=== PATIENT | male | born 1945 | race Caucasian/White ===

== ENCOUNTER 2018-09-14 12:37 | Outpatient (CLI) | payer OTHER | END 2018-09-14 12:38 | disposition home or self-care (01) | LOC: ULT 12:37 → EDSTATUS 13:00 | PROVIDERS: ATTEND Orthopaedic Surgery | DX: I25.10 Atherosclerotic heart disease of native coronary artery without angina pectoris (principal); I80.3 Phlebitis and thrombophlebitis of lower extremities, unspecified; I37.1 Nonrheumatic pulmonary valve insufficiency | CPT/HCPCS: 93306 ==

== ENCOUNTER 2018-09-19 21:19 | Inpatient (IN) | payer MEDICARE, BC ==
[2018-09-19] MEDS ORDERED: Acetaminophen 500 MG TAB ONE (21:39)
[2018-09-19 21:52] LABS: Mean Corpuscular HGB CONC 32.1 g/dL (32.0-36.0); Mean Corpuscular Volume 93.5 fL (78.0-98.0); Mean Platelet Volume 8.3 fL (7.4-10.4); Platelet Count 224 thou/uL (130-400); RBC Distribution Width 13.2 % (11.5-14.5); Red Blood Cell (RBC) Count 4.65 mill/uL (4.70-6.10); White Blood Cell (WBC) Count 16.3 thou/uL (4.8-10.8)
[2018-09-19 21:59] LABS: INR-International Normal Ratio 1.3; PTT 31.4 SEC (22.9-36.1); Prothrombin Time 16.3 SEC (12.0-14.7)
[2018-09-19 22:05] LABS: ALT (SGPT) 16 U/L (8-55); AST (SGOT) 16 U/L (5-34); Albumin 3.5 g/dL (3.4-4.8); Alkaline Phosphatase 56 U/L (40-150); Anion Gap 16 mmol/L (10-20); BUN (Urea Nitrogen) 19 mg/dL (8.4-25.7); Bilirubin, Total 0.9 mg/dL (0.2-1.2); CK (CPK) 48 U/L (30-200); Calc. Creatinine Clearance 0 mL/min (70-130); Calcium 8.5 mg/dL (7.8-10.44); Carbon Dioxide 26 mmol/L (23-31); Chloride 103 mmol/L (98-107); Estimated GFR-MDRD 52; Globulin 2.9 g/dL (2.4-3.5); Glucose 187 mg/dL (83-110); Potassium 3.7 mmol/L (3.5-5.1); Protein, Total 6.4 g/dL (5.8-8.1); Sodium 141 mmol/L (136-145)
[2018-09-19 22:10] LABS: Band 33 % (5-11); Lymphocytes 1 % (21-51); MDiff Complete? YES; Monocytes 4 % (0-10); Neutrophil 62 % (42-75); PLT Morphology Comment Appears Adequate; RBC Morphology Normal
[2018-09-19 22:12] LABS: Actual Bicarbonate (HCO3a) 24.7 mEq/L (22-28); Analyzer IN Cardio ER; Base Excess (BEa) -0.8 mEq/L (-2.0 to +3.0); CO2 Tension 43.9 mmHg (35.0-45.0); Calcium, Ionized 1.16 mmol/L (1.12-1.30); Carboxyhemoglobin (COHb) 1.2 gm% (0.0-3.0); Hemoglobin (Hb) 14.1 g/dL (14.0-18.0); O2 Tension (PaO2) 70.6 mmHg (> 70.0); Potassium - ABG Lab 3.64 mmol/L (3.70-5.30); pH, Arterial 7.37 (7.35-7.45)
[2018-09-19 22:13] LABS: ALV-art Gradient 74.165 (0-20)
[2018-09-19 22:26] LABS: CKMB 1.3 ng/mL (0-6.6)
--- NOTE | 2018-09-19 22:52 | RAD ---
UPRIGHT PORTABLE CHEST: 09/19/18 HISTORY: 73-year-old male with history of dyspnea and weakness with low blood pressure. History of a-fib. There is some bilateral vascular congestion. There is evidence for left pleural effusion. Minimal inc reased linear and interstitial markings which could well present some minimal interstitial edema. IMPRESSION: Bilateral vascular congestion with possible mild interstitial edema. Evidence for left pleural effusi on with possible very small right pleural effusion. No old studies. Continued short term followup. POS: [facility]
[2018-09-19 23:07] LABS: Bilirubin Negative (Negative); Blood, Urine Small (Negative); Clarity CLEAR (Clear); Glucose, Urine (Dipstick) Negative (Negative); Leukocyte Negative (Negative); Nitrite Negative (Negative); Protein, Urine (Dipstick) Trace mg/dL (Neg-Trace); Specific Gravity, Urine 1.012 (1.002-1.036); pH, Urine 6.5 (5.0-9.0)
[2018-09-19 23:09] LABS: Bacteria/HPF None Seen HPF (None Seen); Hyaline Casts/LPF 0-3 HYALINE CAST LPF (0-3 Hyaline); Pathc Cast-AUWi Flag 0.43 (0-2.49); Squamous Epithelial 0-3 HPF (0-3); WBC/HPF 0-3 HPF (0-3)
[2018-09-20] MEDS ORDERED: Ondansetron ODT 4 MG TAB PO PRN (00:55)
[2018-09-20] MEDS ORDERED: CCU Electrolyte Replacement 1 EACH FS ONE (00:55)
[2018-09-20] MEDS ORDERED: Senokot S 8.6-50 MG TAB PO PRN (00:55)
[2018-09-20] MEDS ORDERED: Acetaminophen 325 MG TAB PO PRN (00:55)
[2018-09-20] MEDS ORDERED: Guaifenesin DM 100-10/5 ML UDCUP PO PRN (00:55)
[2018-09-20] MEDS ORDERED: Ondansetron PF 4 MG/2 ML Vial IVP PRN (00:55)
[2018-09-20] MEDS ORDERED: Zolpidem Tartrate 5 MG TAB PO PRN (00:55)
[2018-09-20] MEDS ORDERED: Bisacodyl 5 MG TAB PO PRN (00:55)
[2018-09-20] MEDS ORDERED: Norepinephrine 8 MG/0.9% NS 250 ML IVPB SCH (01:00)
[2018-09-20] MEDS ORDERED: Norepinephrine 8 MG/0.9% NS 250 ML ONE (01:14)
[2018-09-20] MEDS ORDERED: Piperacillin/Tazobactam 4.5 GM VIAL ONE (01:14)
[2018-09-20 01:38] LABS: Lactic Acid 2.7 mmol/L (0.5-2.2)
[2018-09-20] MEDS ORDERED: Potassium Chloride 40 MEQ in Sodium Chloride 0.9% 250 ML 250 ML IVPB PRN (01:44)
[2018-09-20] MEDS ORDERED: Potassium Phosphate 9 MMOL in Sodium Chloride 0.9% 100 ML IVPB PRN (01:44)
[2018-09-20] MEDS ORDERED: Potassium Chloride 40 MEQ in Premix Bag 1 BAG IVPB PRN (01:44)
[2018-09-20] MEDS ORDERED: Potassium Phosphate 12 MMOL in Sodium Chloride 0.9% 250 ML 250 ML IV PRN (01:44)
[2018-09-20] MEDS ORDERED: CCU ELECTROLYTE REPLACEMENT PROTOCOL FS PRN (01:44)
[2018-09-20] MEDS ORDERED: Magnesium 2 GM/NS 0.9% 100 ML 2 GM in Premix Bag 1 BAG IVPB PRN (01:44)
[2018-09-20] MEDS ORDERED: Potassium Phosphate 15 MMOL in Sodium Chloride 0.9% 250 ML 250 ML IV PRN (01:44)
[2018-09-20] MEDS ORDERED: Magnesium Oxide 400 MG TAB PO PRN ×2 (01:44)
[2018-09-20] MEDS ORDERED: Potassium Chloride 20 MEQ TAB PO PRN (01:44)
[2018-09-20 02:11] LABS: Troponin I 0.268 ng/mL (< 0.028)
[2018-09-20 03:35] VITALS: BMI 38.0
[2018-09-20] MEDS ORDERED: Piperacillin/Tazobactam 3.375 GM in Sodium Chloride 0.9% 100 ML IVPB SCH (04:00)
[2018-09-20 04:36] LABS: #Lymphocytes 1.5 thou/uL (1.20-3.40); #Monocytes 0.9 thou/uL (0.11-0.59); #Neutrophils 13.6 thou/uL (1.40-6.50); %Eosinophils 0.2 % (0.0-10.0); %Lymphocytes 9.6 % (21.0-51.0); %Monocytes 5.3 % (0.0-10.0); Mean Corpuscular HGB CONC 32.4 g/dL (32.0-36.0); Mean Corpuscular Hemoglobin 30.6 pg (27.0-31.0); Mean Corpuscular Volume 94.5 fL (78.0-98.0); Mean Platelet Volume 8.6 fL (7.4-10.4); Platelet Count 203 thou/uL (130-400); RBC Distribution Width 13.2 % (11.5-14.5); Red Blood Cell (RBC) Count 4.26 mill/uL (4.70-6.10)
[2018-09-20 04:46] LABS: Albumin 3.1 g/dL (3.4-4.8); Anion Gap 13 mmol/L (10-20); BUN (Urea Nitrogen) 21 mg/dL (8.4-25.7); Calc. Creatinine Clearance 96 mL/min (70-130); Calcium 8.4 mg/dL (7.8-10.44); Carbon Dioxide 30 mmol/L (23-31); Chloride 102 mmol/L (98-107); Estimated GFR-MDRD 57; Glucose 163 mg/dL (83-110); Phosphorus 3.7 mg/dL (2.3-4.7); Potassium 3.5 mmol/L (3.5-5.1); Sodium 141 mmol/L (136-145)
[2018-09-20 04:51] LABS: Troponin I 0.215 ng/mL (< 0.028)
[2018-09-20] MEDS ORDERED: Sodium Chloride 0.9% 1,000 ML IV SCH (05:00)
[2018-09-20] MEDS: Sodium Chloride 0.9% 1,000 ML IV SCH ×4 (05:03→22:27)
--- NOTE | 2018-09-20 08:09 | RAD ---
FRONTAL RADIOGRAPH CHEST SUPINE: DATE: 09/19/2018. TIME: 11:37 p.m. COMPARISON: 09/19/2018 at 9:18 p.m. HISTORY: Evaluate chest following placement of a vascular catheter. FINDINGS: The provided imaging is supine, limiting assessment for pneumothorax and pleural fluid. There is a r ight-sided vascular catheter, distal tip overlying the expected location of the SVC. The right lung appears clear. There is dense pleural and parenchymal opacity on the left, nonspecific and stable. IMPRESSION: Right-sided vascular catheter. Dense focal pleural and parenchymal opacity in the left lung base whi ch may reflect infectious pneumonitis, aspiration, and/or pleural fluid. POS: [facility]
[2018-09-20] MEDS ORDERED: HumaLOG 300 UNITS/3 ML VIAL SC PRN (08:18)
[2018-09-20] MEDS ORDERED: Dextrose 50% Abboject 50 ML SYRINGE SLOW IVP PRN (08:18)
[2018-09-20] MEDS ORDERED: Dextrose 5% in Water 1,000 ML IV PRN (08:18)
[2018-09-20] MEDS ORDERED: Levothyroxine 150 MCG TAB PO SCH (09:00)
[2018-09-20] MEDS ORDERED: Famotidine/PF 20 mg/2ml Vial SLOW IVP SCH (09:00)
[2018-09-20] MEDS ORDERED: Enoxaparin Sodium 40 MG/0.4 ML SYRINGE SC SCH (09:00)
[2018-09-20] MEDS ORDERED: Azithromycin 250 MG TAB PO SCH ×2 (09:00→09:30)
--- NOTE | 2018-09-20 09:01 | HP ---
CHIEF COMPLAINT: Cough. HISTORY OF PRESENT ILLNESS: This is a 73-year-old male with past medical history significant for hypertension; diabetes mellitus, type 2; atrial fibrillation; hypothyroidism; tremors; and sleep apnea, presenting with productive cough, which has been ongoing for the past 3 days. Per the patient's , the patient has been feeling congested, had several nasal decongestants which has not helped with his congestion. also states that the patient's blood pressure when checked at home was also low, and the patient refused to come to the hospital and she had to force him to bring him to the hospital today (because the patient was not looking good). In the ED, the patient was started on sepsis protocol, and the patient was placed on a central line, and the patient was admitted to the ICU to be started on pressors. At this point, the patient admits to having productive cough with white clear sputum. The patient states that he is feeling some generalized weakness and shortness of breath. Otherwise, the patient stated that he is feeling much better compared to how he felt when he was at home. REVIEW OF SYSTEMS: Positive for chills, fever, nasal congestion, sore throat, shortness of breath, productive cough. Otherwise as documented in the HPI, all other systems were reviewed and are negative. PAST MEDICAL HISTORY: Hypertension; diabetes mellitus, type 2; atrial fibrillation; hypothyroidism; tremors; and sleep apnea. PAST SURGICAL HISTORY: Bilateral cataract. PSYCHIATRIC HISTORY: Night terrors and PTSD. FAMILY HISTORY: Reviewed and noncontributory to this visit. SOCIAL HISTORY: Denies alcohol use. Denies illicit drug use. The patient smokes and chews tobacco. ALLERGIES: NO KNOWN DRUG ALLERGIES. CURRENT MEDICATIONS: 1. Metformin 500 mg b.i.d. 2. Digoxin 250 mcg. 3. Synthroid 150 mcg. 4. Losartan 50 mg. 5. Fluoxetine 10 mg. 6. Simvastatin 20 mg. 7. Savaysa 60. PHYSICAL EXAMINATION: VITAL SIGNS: Blood pressure 97/54, pulse of 68, respiratory rate of 28, O2 saturation of 92 on 2 L of oxygen. GENERAL: The patient is lying in bed. Has 2 L of nasal cannula in place. The patient is breathing through his mouth and has some nasal congestion. Otherwise, the patient is able to speak in full sentences and does not appear to be in any acute distress. HEENT: Normocephalic and atraumatic. Pupils are equally round and reactive to light. Extraocular movements are intact. No scleral icterus. NECK: Supple. No JVD. Trachea is midline. LUNGS: The patient has rhonchi bilaterally at the anterior lung khan and also prominent at the posterior lung khan. CARDIAC: Irregularly irregular. Tachycardic. ABDOMEN: Obese abdomen, soft, nontender, and nondistended. Positive bowel sounds in all quadrants. EXTREMITIES: The patient has 5/5 upper extremity strength and 5/5 lower extremity strength. NEUROLOGIC: Cranial nerves 2 through 12 grossly intact. SKIN: Warm, dry, and intact. PSYCHIATRIC: Normal affect. DIAGNOSTIC DATA: EKG shows atrial fibrillation with a rate of 129. Chest x-ray shows bilateral vascular congestion and left pleural effusions. LABORATORY DATA: WBC is 16.3, hemoglobin is 14.0, hematocrit is 43.5, and platelet count is 224. PT is 16.3, INR is 1.3, PTT is 31.4. A pH is 7.37, pCO2 is 43, and pO2 is 70. Sodium is 141, potassium is 3.7, chloride 103, anion gap of 16, BUN is 19, creatinine is 1.36, lactic acid of 2.7, glucose of 187. Troponin is 0.214. Urinalysis is negative. ASSESSMENT AND PLAN: This is a 73-year-old male, being admitted for: 1. Septic shock. At this point, the source of infection is unclear. We have sent out cultures. We will follow up on cultures. We will start the patient on vancomycin and Zosyn. We will continue the patient on these antibiotics. A central line has been placed. The patient has been started on pressors. We will continue the patient on pressors. We will follow up with Pulmonology and last inserter regarding further treatment. We will monitor the patient closely. 2. Acute respiratory failure, hypoxemic. The patient sounds fluid overloaded. At this point, the patient has been treated for sepsis. We are going to discontinue fluids, and we are going to leave the patient on Levophed at this time to maintain blood pressure. Once the patient's blood pressure is maintained, we are going to discontinue the patient off Levophed. The patient will benefit from diuresis in the future after blood pressure has been stable and the patient's sepsis has been resolved. 3. Atrial fibrillation with rapid ventricular response. Currently, the patient is rate controlled. The patient is on Savaysa. We will continue the patient on Savaysa, and we will continue to monitor the patient closely. 4. Acute on chronic kidney injury. The patient is on losartan. We are going to hold losartan, and we are going to hold all nephrotoxic drugs. We will continue to monitor the patient closely. 5. History of hypothyroidism. We will continue the patient on home medications. 6. Hypertension. Currently, the patient is hypotensive, and the patient is on pressors. We are going to monitor the patient's blood pressure closely. 7. Hyperlipidemia. We will continue the patient on home medications. 8. History of depression. We will continue the patient on home medications. 9. Deep venous thrombosis and gastrointestinal prophylaxis. Critical Care time: About 60 minutes. Job ID: [id number]
[2018-09-20] MEDS: Piperacillin/Tazobactam 3.375 GM in Sodium Chloride 0.9% 100 ML IVPB SCH ×3 (09:34→19:33)
[2018-09-20] MEDS: Famotidine 20 MG TAB PO SCH ×2 (09:35→22:28)
[2018-09-20] MEDS: Enoxaparin Sodium 40 MG/0.4 ML SYRINGE SC SCH (10:02)
[2018-09-20] MEDS: Digoxin 0.25 MG TAB PO SCH (10:02)
[2018-09-20] MEDS: Azithromycin 250 MG TAB PO SCH (10:03)
[2018-09-20] MEDS: FLUoxetine HCl 10 MG CAP PO SCH (10:04)
[2018-09-20] MEDS: Latanoprost 0.005% Ophth Soln 2.5 ml Bottle EA EYE SCH (10:08)
[2018-09-20] MEDS ORDERED: Vancomycin HCl 1.5 GM in Sodium Chloride 0.9% 250 ML 300 ML IVPB SCH (12:00)
--- NOTE | 2018-09-20 13:42 | CON ---
DATE OF CONSULTATION: 09/20/2018 CRITICAL CARE TIME: 35 minutes. REASON FOR CONSULTATION: Pneumonia and hypotension. HISTORY OF PRESENT ILLNESS: The patient is a 73-year-old male, who presented last night with 2 days of cough, congestion, and fever. On evaluation in the emergency room, he was found to be hypotensive. This necessitated insertion of a central line and administration of Levophed. He was started on broad-spectrum IV antibiotics including Zosyn and vancomycin. The patient has been coughing some. PAST MEDICAL HISTORY: 1. Hypertension. 2. Diabetes mellitus, type 2. 3. Chronic atrial fibrillation. 4. Hypothyroidism. 5. Hyperlipidemia. 6. KATJA. PAST SURGICAL HISTORY: Bilateral cataract surgery. PSYCHIATRIC HISTORY: Remarkable for night terrors and PTSD. SOCIAL HISTORY: Former smoker, quit many years ago. He chews tobacco. Does not consume alcohol or use illicit drugs. ALLERGIES: NONE. MEDICATIONS: Prior to admission; 1. Metformin 500 mg twice daily. 2. Digoxin 250 mcg daily. 3. Synthroid 150 mcg daily. 4. Losartan 50 mg daily. 5. Fluoxetine 10 mg daily. 6. Simvastatin 20 mg daily. 7. Savaysa, dose not quantitated. PHYSICAL EXAMINATION: VITAL SIGNS: Temperature 98.0, pulse 97, blood pressure 126/64, O2 saturation currently 99% on nasal cannula. He is on a Levophed drip at 2 mcg per kg per minute. GENERAL: He is awake, alert, and in no distress. HEENT: His pupils are reactive. Sclerae anicteric. Oropharynx, class IV Mallampati airway without oral lesions. NECK: No adenopathy, JVD, or bruits. LUNGS: He has diminished breath sounds in both bases. CARDIOVASCULAR: S1 and S2, irregularly irregular without murmur. ABDOMEN: Soft, obese, nontender, and nondistended. EXTREMITIES: No clubbing, cyanosis, or edema. NEUROLOGIC: Grossly intact throughout. LABORATORY DATA: Sodium 141, potassium 3.5, chloride 102, CO2 of 30, BUN 21, creatinine 1.2, and glucose 163. Troponin 0.215. Albumin 3.1. A pH 7.37, pCO2 of 43, PO2 of 70 that was on 2 L nasal cannula. INR is 1.3. Urinalysis shows a small amount of blood and red blood cells in the urine. White blood cell count 16.0, hematocrit 40, and platelet count 203. IMAGING STUDIES: His x-ray shows loss of the left diaphragmatic shadow indicative of left lower lobe infiltrate. He has a central line in the right IJ that extends down into the inferior vena cava. ASSESSMENT: 1. Left lower lobe pneumonia, community acquired. 2. Septic shock. 3. Diabetes mellitus, type 2. 4. Hypothyroidism. 5. Chronic atrial fibrillation. PLAN: 1. Wean off the Levophed. 2. Restart the IV fluids. 3. Add azithromycin for atypical coverage. Consider discontinuing vancomycin if 48-hour culture is negative. 4. Monitor labs. 5. Hopefully, out of the ICU later today if Levophed is weaned off. 6. Enoxaparin for DVT prophylaxis. 7. Pepcid for GI prophylaxis. 8. Monitor glucose and use sliding scale insulin as needed. Job ID: [id number]
--- NOTE | 2018-09-20 13:58 | PDOC.PN ---
- Subjective Encounter Start Date: 09/20/18 Encounter Start Time: 11:15 Subjective: pt up in bed no complains - Objective Resuscitation Status - Order Detail: 09/20/18 00:55 Resuscitation Status Routine Resuscitation Status: FULL: Full Resuscitation Vital Signs & Weight: Vital Signs (12 hours) Temp Pulse Pulse Ox 09/20/18 12:00 98.6 F 09/20/18 10:02 98 09/20/18 08:00 98.5 F 09/20/18 07:31 91 L 09/20/18 04:24 94 L 09/20/18 04:00 98 F 09/20/18 03:10 93 L 09/20/18 03:00 98 F Weight Weight 280 lb 3.32 oz Most Recent Monitor Data Heart Rate from ECG 73 NIBP 88/49 NIBP BP-Mean 62 Respiration from ECG 21 SpO2 99 I&O: 09/19/18 09/20/18 09/21/18 06:59 06:59 06:59 Intake Total 114 460 Output Total 700 620 Balance -586 -160 Result Diagrams: 09/20/18 04:16 09/20/18 03:39 Additional Labs: Accuchecks 09/20/18 11:56 POC Glucose 135 H Phys Exam - Physical Examination Neck: no nodes, no JVD, supple, full ROM mild rhonchi all over Cardiovascular: RRR, no significant murmur, no rub, gallop, irregular Gastrointestinal: soft, non-tender, no distention, positive bowel sounds Musculoskeletal: no edema, pulses present, edema present Dx/Plan (1) Sepsis Code(s): A41.9 - SEPSIS, UNSPECIFIED ORGANISM Status: Acute (2) Pneumonia Code(s): J18.9 - PNEUMONIA, UNSPECIFIED ORGANISM Status: Acute (3) Hypotension Status: Acute - Plan will continue abx for now -: pt on levophed will wean off * . Review of Systems - Review of Systems Respiratory: Cough Cardiovascular: negative: chest pain, palpitations, orthopnea, paroxysmal nocturnal dyspnea, edema, light headedness, other Gastrointestinal: negative: Nausea, Vomiting, Abdominal Pain, Diarrhea, Constipation, Melena, Hematochezia, Other Genitourinary: negative: Dysuria, Frequency, Incontinence, Hematuria, Retention , Other Musculoskeletal: negative: Neck Pain, Shoulder Pain, Arm Pain, Back Pain, Hand Pain, Leg Pain, Foot Pain, Other - Medications/Allergies Allergies/Adverse Reactions: Allergies Allergy/AdvReac Type Severity Reaction Status Date / Time No Known Allergies Allergy Unverified 09/20/18 03:34 Medications: Current Medications Acetaminophen (Tylenol) 650 mg PO Q4H PRN PRN Reason: Headache/Fever/Mild Pain (1-3) Atorvastatin Calcium (Lipitor) 10 mg PO HS [facility] Azithromycin (Zithromax) 250 mg PO DAILY [facility] Stop: 09/24/18 09:01 Last Admin: 09/20/18 10:03 Dose: 250 mg Bisacodyl (Dulcolax) 10 mg PO DAILYPRN PRN PRN Reason: Constipation Dextrose/Water (Dextrose 50%) 25 gm SLOW IVP PRN PRN PRN Reason: Hypoglycemia Digoxin (Lanoxin) 0.25 mg PO DAILY [facility] Last Admin: 09/20/18 10:02 Dose: 0.25 mg Enoxaparin Sodium (Lovenox) 40 mg SC 0900 [facility] Last Admin: 09/20/18 10:02 Dose: 40 mg Famotidine (Pepcid) 20 mg PO BID [facility] Last Admin: 09/20/18 09:35 Dose: 20 mg Fluoxetine HCl (Prozac) 10 mg PO DAILY [facility] Last Admin: 09/20/18 10:04 Dose: 10 mg Glucagon (Glucagon) 1 mg IM PRN PRN PRN Reason: Hypoglycemia Guaifenesin/Dextromethorphan (Robitussin Dm) 15 ml PO Q4H PRN PRN Reason: Cough Norepinephrine Bitartrate (Levophed) 250 mls @ 0 mls/hr IVPB INF [facility]; Protocol Potassium Chloride 40 meq/ (Sodium Chloride) 270 mls @ 135 mls/hr IVPB ASDIR PRN PRN Reason: FOR SERUM K+ 2.5 - 3.5 Potassium Chloride 40 meq/ (Device) 100 mls @ 50 mls/hr IVPB ASDIR PRN PRN Reason: FOR SERUM K+ 2.5 - 3.5 Magnesium Sulfate 1 gm/ Sodium (Chloride) 102 mls @ 102 mls/hr IV PRN PRN PRN Reason: MAG LEVEL 1.4 - 2.0 Magnesium Sulfate 2 gm/ Device 100 mls @ 100 mls/hr IVPB ASDIR PRN PRN Reason: MAGNESIUM < 1.4 Potassium Phosphate 9 mmol/ (Sodium Chloride) 103 mls @ 25.75 mls/hr IVPB ASDIR PRN PRN Reason: Phosphate 1.0-1.8 Potassium Phosphate 12 mmol/ (Sodium Chloride) 254 mls @ 63.5 mls/hr IV ASDIR PRN PRN Reason: Serum phosphate 0.5-0.9 Potassium Phosphate 15 mmol/ (Sodium Chloride) 255 mls @ 63.75 mls/hr IV ASDIR PRN PRN Reason: Serum Phos < 0.5 Vancomycin HCl 1.5 gm/ Sodium (Chloride) 300 mls @ 200 mls/hr IVPB 1200,2359 [facility] Piperacillin Sod/Tazobactam (Sod 3.375 gm/ Sodium Chloride) 100 mls @ 200 mls/ hr IVPB 0200,0800,1400,2000 [facility] Last Admin: 09/20/18 09:34 Dose: 100 mls Sodium Chloride (Normal Saline 0.9%) 1,000 mls @ 100 mls/hr IV .Q10H [facility] Last Admin: 09/20/18 09:35 Dose: 1,000 mls Dextrose/Water (D5w) 1,000 mls @ 0 mls/hr IV .Q0M PRN PRN Reason: Hypoglycemia Insulin Human Lispro (Humalog) 0 units SC .MODERATE SLIDING SC PRN PRN Reason: Moderate Correctional Scale Latanoprost (Xalatan 0.005% Ophth Soln) 1 drop EA EYE QAM [facility] Last Admin: 09/20/18 10:08 Dose: 1 drp Levothyroxine Sodium (Synthroid) 150 mcg PO 0600 [facility] Magnesium Oxide (Magnesium Oxide) 400 mg PO BIDPRN PRN PRN Reason: FOR SERUM MAG 1.4 - 2.0 Magnesium Oxide (Magnesium Oxide) 800 mg PO PRN PRN PRN Reason: FOR SERUM MAG < 1.4 Miscellaneous Medication (Pharmacy To Dose) 0 each IVPB PRN PRN PRN Reason: VANC/ZOSYN Pharmacy to Dose Miscellaneous Medication (Phos-Nak) 1 pkt PO TIDPRN PRN PRN Reason: FOR PHOS LEVEL 1.0 - 1.8 Miscellaneous Medication (Phos-Nak) 2 pkt PO TIDPRN PRN PRN Reason: FOR PHOS LEVEL 0.5 - 1.0 Ccu Electrolyte (Replacement Protocol) 0 each FS PRN PRN PRN Reason: FOR ELECTROLYTE REPLACEMENT Ondansetron HCl (Zofran Odt) 4 mg PO Q6H PRN PRN Reason: Nausea/Vomiting Ondansetron HCl (Zofran) 4 mg IVP Q6H PRN PRN Reason: Nausea/Vomiting (Edoxaban Tosylate [ Savaysa] 60 Mg) Hm Med 0 each PO DAILY [facility] Potassium Chloride (K-Dur) 40 meq PO ASDIR PRN PRN Reason: FOR SERUM K+ 2.5 - 3.5 Last Admin: 09/20/18 06:33 Dose: 40 meq Potassium Chloride (Klor-Con) 40 meq PER TUBE ASDIR PRN PRN Reason: FOR SERUM K+ 2.5-3.5 Senna/Docusate Sodium (Senokot S) 2 tab PO BIDPRN PRN PRN Reason: Constipation Sodium Chloride (Flush - Normal Saline) 10 ml IVF Q12HR [facility] Last Admin: 09/20/18 10:09 Dose: 10 ml Sodium Chloride (Flush - Normal Saline) 10 ml IVF PRN PRN PRN Reason: Saline Flush Zolpidem Tartrate (Ambien) 5 mg PO HSPRN PRN PRN Reason: Insomnia
[2018-09-20] MEDS: Vancomycin HCl 1.5 GM in Sodium Chloride 0.9% 250 ML 300 ML IVPB SCH (15:56)
[2018-09-20] MEDS: Atorvastatin Calcium 10 MG TAB PO SCH (22:28)
[2018-09-21] MEDS: Piperacillin/Tazobactam 3.375 GM in Sodium Chloride 0.9% 100 ML IVPB SCH ×4 (02:53→21:31)
[2018-09-21] MEDS: Vancomycin HCl 1.5 GM in Sodium Chloride 0.9% 250 ML 300 ML IVPB SCH ×2 (02:54→15:50)
[2018-09-21 05:25] LABS: #Eosinphils 0.1 thou/uL (0.0-0.7); #Lymphocytes 1.2 thou/uL (1.20-3.40); #Monocytes 0.7 thou/uL (0.11-0.59); #Neutrophils 8.2 thou/uL (1.40-6.50); %Basophils 0.3 % (0.0-1.0); %Lymphocytes 12.1 % (21.0-51.0); %Monocytes 6.8 % (0.0-10.0); %Neutrophils 79.9 % (42.0-75.0); Mean Corpuscular HGB CONC 31.3 g/dL (32.0-36.0); Mean Corpuscular Volume 95.8 fL (78.0-98.0); Mean Platelet Volume 8.2 fL (7.4-10.4); Platelet Count 194 thou/uL (130-400); RBC Distribution Width 13.2 % (11.5-14.5); Red Blood Cell (RBC) Count 3.99 mill/uL (4.70-6.10); White Blood Cell (WBC) Count 10.2 thou/uL (4.8-10.8)
[2018-09-21 05:43] LABS: Anion Gap 11 mmol/L (10-20); BUN (Urea Nitrogen) 16 mg/dL (8.4-25.7); Calc. Creatinine Clearance 126 mL/min (70-130); Calcium 8.3 mg/dL (7.8-10.44); Carbon Dioxide 32 mmol/L (23-31); Chloride 104 mmol/L (98-107); Estimated GFR-MDRD 78; Glucose 125 mg/dL (83-110); Potassium 3.9 mmol/L (3.5-5.1); Sodium 143 mmol/L (136-145)
[2018-09-21] MEDS: Sodium Chloride 0.9% 1,000 ML IV SCH ×2 (06:43→15:51)
[2018-09-21] MEDS: Levothyroxine 150 MCG TAB PO SCH (06:46)
[2018-09-21] MEDS: FLUoxetine HCl 10 MG CAP PO SCH (09:33)
[2018-09-21] MEDS: Digoxin 0.25 MG TAB PO SCH (09:33)
[2018-09-21] MEDS: Azithromycin 250 MG TAB PO SCH (09:34)
[2018-09-21] MEDS: Famotidine 20 MG TAB PO SCH ×2 (09:34→21:29)
[2018-09-21] MEDS: Enoxaparin Sodium 40 MG/0.4 ML SYRINGE SC SCH (09:34)
[2018-09-21] MEDS: Latanoprost 0.005% Ophth Soln 2.5 ml Bottle EA EYE SCH (09:35)
--- NOTE | 2018-09-21 10:00 | PRG ---
DATE OF SERVICE: 09/21/2018 TIME SPENT: 35 minutes critical care time. SUBJECTIVE: The patient remains in the CCU. His Levophed was turned off about an hours ago, but his pressure remained fairly steady overnight, probably indicating that he is not being on Levophed for the most of the night. OBJECTIVE: VITAL SIGNS: Temperature is 97.9, pulse 78, blood pressure 125/71, and saturating 95%. 24-hour intake 2378, output 2275. HEENT: Unremarkable. NECK: Without adenopathy, JVD, or bruits. LUNGS: Few crackles in left base. CARDIOVASCULAR: S1 and S2. Regular. ABDOMEN: Soft and nontender. EXTREMITIES: No edema. LABORATORY DATA: White blood cell count 10.2, hemoglobin 12, hematocrit 38.3, and platelet count 194. Sodium 143, potassium 3.9, chloride 104, CO2 of 32, BUN 16, creatinine 0.9, and glucose 125. Cultures growing out coag-negative Staph. The blood cultures from his left hand indicating that probably a contaminant. A respiratory virus panel was negative. ASSESSMENT: 1. Left lower lobe pneumonia, community acquired. 2. Septic shock. 3. Diabetes mellitus type 2. 4. Hypothyroidism. 5. Chronic atrial fibrillation. 6. Renal dysfunction, which is improved. PLAN: The patient can be transferred out to the Telemetry floor. We will continue current antibiotics. Vancomycin can be discontinued, if the 48-hour cultures are negative. I will go ahead and initiate a Physical Therapy referral. Job ID: [id number]
[2018-09-21] MEDS: EDOXABAN TOSYLATE 60 MG PO SCH ×2 (15:44→15:45)
--- NOTE | 2018-09-21 18:23 | PDOC.PN ---
- Subjective Encounter Start Date: 09/21/18 - Objective Resuscitation Status - Order Detail: 09/20/18 00:55 Resuscitation Status Routine Resuscitation Status: FULL: Full Resuscitation Vital Signs & Weight: Vital Signs (12 hours) Temp Pulse Pulse Pulse Resp BP BP 09/21/18 17:23 98.1 F 87 20 09/21/18 13:20 90 90 144/74 H 107/61 09/21/18 12:00 99 F 09/21/18 09:33 81 09/21/18 08:00 99.1 F BP Pulse Ox Pulse Ox Pulse Ox 09/21/18 17:23 156/85 H 94 L 09/21/18 13:20 99 97 09/21/18 12:00 09/21/18 09:33 09/21/18 08:00 96 Weight Weight 280 lb 3.32 oz Most Recent Monitor Data Heart Rate from ECG 88 NIBP 145/77 NIBP BP-Mean 99 Respiration from ECG 16 SpO2 93 I&O: 09/20/18 09/21/18 09/22/18 06:59 06:59 06:59 Intake Total 114 2378 1600 Output Total 700 2275 490 Balance -392 292 6690 Result Diagrams: 09/21/18 04:15 09/21/18 04:15 Additional Labs: Accuchecks 09/21/18 16:56 POC Glucose 107 Dx/Plan (1) Sepsis Code(s): A41.9 - SEPSIS, UNSPECIFIED ORGANISM Status: Acute (2) Pneumonia Code(s): J18.9 - PNEUMONIA, UNSPECIFIED ORGANISM Status: Acute (3) Hypotension Status: Acute - Plan * .
[2018-09-21] MEDS: guaiFENesin ER 600 MG TAB PO SCH (21:29)
[2018-09-21] MEDS: Atorvastatin Calcium 10 MG TAB PO SCH (21:29)
[2018-09-21] MEDS ORDERED: HumaLOG 300 UNITS/3 ML VIAL SC PRN (23:05)
[2018-09-21] MEDS ORDERED: HYDROcodone/Acetaminophen 5/325 mg Tablet PO PRN ×2 (23:07)
[2018-09-22] MEDS: Sodium Chloride 0.9% 1,000 ML IV SCH ×2 (02:15→06:00)
[2018-09-22] MEDS: Piperacillin/Tazobactam 3.375 GM in Sodium Chloride 0.9% 100 ML IVPB SCH ×4 (02:17→20:30)
[2018-09-22 02:39] LABS: Vancomycin, Trough 15.7 ug/mL
[2018-09-22] MEDS: Vancomycin HCl 1.5 GM in Sodium Chloride 0.9% 250 ML 300 ML IVPB SCH ×2 (03:55→14:06)
[2018-09-22] MEDS: Levothyroxine 150 MCG TAB PO SCH (05:59)
[2018-09-22] MEDS: Enoxaparin Sodium 40 MG/0.4 ML SYRINGE SC SCH (08:42)
[2018-09-22] MEDS: Digoxin 0.25 MG TAB PO SCH (08:42)
[2018-09-22] MEDS: FLUoxetine HCl 10 MG CAP PO SCH (08:43)
[2018-09-22] MEDS: Famotidine 20 MG TAB PO SCH ×2 (08:43→20:31)
[2018-09-22] MEDS: Latanoprost 0.005% Ophth Soln 2.5 ml Bottle EA EYE SCH (08:45)
[2018-09-22] MEDS: guaiFENesin ER 600 MG TAB PO SCH ×2 (09:02→20:30)
[2018-09-22] MEDS: EDOXABAN TOSYLATE 60 MG PO SCH (09:14)
--- NOTE | 2018-09-22 10:19 | PRG ---
DATE OF SERVICE: 09/22/2018 SUBJECTIVE: The patient feels somewhat better. OBJECTIVE: VITAL SIGNS: Temperature is 99.7, pulse 85, respirations 18, O2 sat 94%, and blood pressure 145/80. HEENT: Unremarkable. NECK: No adenopathy, JVD, or bruits. LUNGS: Diminished breath sounds in the left base. CARDIAC: S1 and S2, regular. ABDOMEN: Soft. EXTREMITIES: No edema. ASSESSMENT: 1. Left lower lobe pneumonia. 2. Sepsis syndrome. 3. Diabetes mellitus. 4. Chronic atrial fibrillation. PLAN: If his 48-hour cultures are negative today, then I would discontinue his vancomycin. Continue azithromycin. The Zosyn can be changed to Omnicef by tomorrow. We will go ahead and resume the patient's metformin and stop his IV fluids. He needs to work with Physical Therapy and improve his strength. Job ID: [id number]
[2018-09-22 14:56] LABS: Actual Bicarbonate (HCO3a) 32.3 mEq/L (22-28); Analyzer IN Cardio OR; Calcium, Ionized 1.14 mmol/L (1.12-1.30); Carboxyhemoglobin (COHb) 1.5 gm% (0.0-3.0); Hemoglobin (Hb) 12.8 g/dL (14.0-18.0); Potassium - ABG Lab 4.16 mmol/L (3.70-5.30)
[2018-09-22 14:57] LABS: CO2 Tension 67.4 mmHg (35.0-45.0); Puncture Site RRA
--- NOTE | 2018-09-22 15:14 | PDOC.PN ---
- Subjective Encounter Start Date: 09/22/18 Encounter Start Time: 09:00 Subjective: pt up in bed sleeping, arousable - Objective Resuscitation Status - Order Detail: 09/20/18 00:55 Resuscitation Status Routine Resuscitation Status: FULL: Full Resuscitation Vital Signs & Weight: Vital Signs (12 hours) Temp Pulse Resp BP Pulse Ox 09/22/18 13:50 100.1 F H 99 18 138/76 87 L 09/22/18 08:08 99.7 F H 85 18 145/80 H 94 L 09/22/18 03:32 97.0 F L 88 18 134/74 94 L Weight Weight 290 lb Most Recent Monitor Data Heart Rate from ECG 88 NIBP 145/77 NIBP BP-Mean 99 Respiration from ECG 16 SpO2 93 I&O: 09/21/18 09/22/18 09/23/18 06:59 06:59 06:59 Intake Total 2378 3670 Output Total 2275 2040 Balance 103 1630 Result Diagrams: 09/21/18 04:15 09/21/18 04:15 Additional Labs: Accuchecks 09/22/18 09/22/18 09/21/18 11:18 01:21 16:56 POC Glucose 114 H 237 H 107 Phys Exam - Physical Examination Neck: no nodes, no JVD, supple, full ROM mild rhonchi all over Cardiovascular: RRR, no significant murmur, no rub, gallop, irregular Gastrointestinal: soft, non-tender, no distention, positive bowel sounds Dx/Plan (1) Sepsis Code(s): A41.9 - SEPSIS, UNSPECIFIED ORGANISM Status: Acute (2) Pneumonia Code(s): J18.9 - PNEUMONIA, UNSPECIFIED ORGANISM Status: Acute (3) Hypotension Status: Acute - Plan updated about pt's condition -: will get PT since pt has limited mobility at home -: will continue current abx for now -: metformin started * . Review of Systems - Review of Systems Cardiovascular: negative: chest pain, palpitations, orthopnea, paroxysmal nocturnal dyspnea, edema, light headedness, other Gastrointestinal: negative: Nausea, Vomiting, Abdominal Pain, Diarrhea, Constipation, Melena, Hematochezia, Other Genitourinary: negative: Dysuria, Frequency, Incontinence, Hematuria, Retention , Other Musculoskeletal: negative: Neck Pain, Shoulder Pain, Arm Pain, Back Pain, Hand Pain, Leg Pain, Foot Pain, Other - Medications/Allergies Allergies/Adverse Reactions: Allergies Allergy/AdvReac Type Severity Reaction Status Date / Time No Known Allergies Allergy Unverified 09/20/18 03:34 Medications: Current Medications Acetaminophen (Tylenol) 650 mg PO Q4H PRN PRN Reason: Headache/Fever/Mild Pain (1-3) Last Admin: 09/22/18 09:02 Dose: 650 mg Hydrocodone Bitart/Acetaminophen (Benld 5/325) 1 tab PO Q6H PRN PRN Reason: Moderate Pain (4-6) Hydrocodone Bitart/Acetaminophen (Benld 5/325) 2 tab PO Q6H PRN PRN Reason: Severe Pain (7-10) Atorvastatin Calcium (Lipitor) 10 mg PO HS [facility] Last Admin: 09/21/18 21:29 Dose: 10 mg Azithromycin (Zithromax) 250 mg PO DAILY [facility] Stop: 09/24/18 09:01 Last Admin: 09/21/18 09:34 Dose: 250 mg Bisacodyl (Dulcolax) 10 mg PO DAILYPRN PRN PRN Reason: Constipation Dextrose/Water (Dextrose 50%) 25 gm SLOW IVP PRN PRN PRN Reason: Hypoglycemia Digoxin (Lanoxin) 0.25 mg PO DAILY [facility] Last Admin: 09/22/18 08:42 Dose: 0.25 mg Enoxaparin Sodium (Lovenox) 40 mg SC 0900 [facility] Last Admin: 09/22/18 08:42 Dose: 40 mg Famotidine (Pepcid) 20 mg PO BID [facility] Last Admin: 09/22/18 08:43 Dose: 20 mg Fluoxetine HCl (Prozac) 10 mg PO DAILY [facility] Last Admin: 09/22/18 08:43 Dose: 10 mg Glucagon (Glucagon) 1 mg IM PRN PRN PRN Reason: Hypoglycemia Guaifenesin (Mucinex) 600 mg PO Q12HR [facility] Last Admin: 09/22/18 09:02 Dose: 600 mg Guaifenesin/Dextromethorphan (Robitussin Dm) 15 ml PO Q4H PRN PRN Reason: Cough Last Admin: 09/22/18 14:05 Dose: 15 ml Piperacillin Sod/Tazobactam (Sod 3.375 gm/ Sodium Chloride) 100 mls @ 200 mls/ hr IVPB 0200,0800,1400,2000 [facility] Last Admin: 09/22/18 08:42 Dose: 100 mls Dextrose/Water (D5w) 1,000 mls @ 0 mls/hr IV .Q0M PRN PRN Reason: Hypoglycemia Vancomycin HCl 1.5 gm/ Sodium (Chloride) 300 mls @ 200 mls/hr IVPB 0300,1500 [facility] Last Admin: 09/22/18 14:06 Dose: 300 mls Insulin Human Lispro (Humalog) 0 units SC .MODERATE SLIDING SC PRN PRN Reason: Moderate Correctional Scale Last Admin: 09/21/18 22:28 Dose: 10 unit Insulin Human Lispro (Humalog) 0 units SC .BEDTIME SLIDING SC PRN; Protocol PRN Reason: BEDTIME SLIDING SCALE Latanoprost (Xalatan 0.005% Ophth Soln) 1 drop EA EYE QAM [facility] Last Admin: 09/22/18 08:45 Dose: 1 drp Levothyroxine Sodium (Synthroid) 150 mcg PO 0600 [facility] Last Admin: 09/22/18 05:59 Dose: 150 mcg Metformin HCl (Glucophage) 1,000 mg PO BID-[facility] Miscellaneous Medication (Pharmacy To Dose) 0 each IVPB PRN PRN PRN Reason: VANC/ZOSYN Pharmacy to Dose Ccu Electrolyte (Replacement Protocol) 0 each FS PRN PRN PRN Reason: FOR ELECTROLYTE REPLACEMENT Ondansetron HCl (Zofran Odt) 4 mg PO Q6H PRN PRN Reason: Nausea/Vomiting Ondansetron HCl (Zofran) 4 mg IVP Q6H PRN PRN Reason: Nausea/Vomiting (Edoxaban Tosylate [ Savaysa] 60 Mg) Med 0 each PO DAILY [facility] Last Admin: 09/22/18 09:14 Dose: 1 each Senna/Docusate Sodium (Senokot S) 2 tab PO BIDPRN PRN PRN Reason: Constipation Zolpidem Tartrate (Ambien) 5 mg PO HSPRN PRN PRN Reason: Insomnia
[2018-09-22] MEDS: metFORMIN 500 MG TAB PO SCH (17:26)
[2018-09-22] MEDS ORDERED: Furosemide 20 MG/2 ML VIAL SLOW IVP SCH (17:45)
[2018-09-22 17:54] LABS: Actual Bicarbonate (HCO3a) 32.2 mEq/L (22-28); Analyzer IN Cardio OR; Base Excess (BEa) 5.4 mEq/L (-2.0 to +3.0); CO2 Tension 56.8 mmHg (35.0-45.0); Calcium, Ionized 1.12 mmol/L (1.12-1.30); Carboxyhemoglobin (COHb) 1.6 gm% (0.0-3.0); Hemoglobin (Hb) 13.1 g/dL (14.0-18.0); Potassium - ABG Lab 4.22 mmol/L (3.70-5.30); pH, Arterial 7.37 (7.35-7.45)
[2018-09-22 17:55] LABS: O2 Tension (PaO2) 54.1 mmHg (> 70.0); Puncture Site LRA
--- NOTE | 2018-09-22 19:23 | RAD ---
RADIOGRAPH CHEST 1 VIEW: Date: 09/22/18 Time: 4:51 p.m. HISTORY: 73-year-old male with dyspnea. COMPARISON: 09/19/18. FINDINGS: The right IJ central line is no longer present. The opacification of the left lung base with air spac e densities and possible left pleural effusion, are again noted. It is difficult to compare with the prior study because of differences in positioning. No esther pulmonary edema. There is diffuse pulmona ry venous engorgement. Small right infrahilar focal opacity. No pneumothorax. IMPRESSION: 1. Left lower lobe infiltrate and/or left pleural effusion. 2. Interval removal of right sided central vascular catheter. 3. Pulmonary venous congestion. JN [] POS: JIN
[2018-09-22] MEDS: Atorvastatin Calcium 10 MG TAB PO SCH (20:30)
[2018-09-23] MEDS: Piperacillin/Tazobactam 3.375 GM in Sodium Chloride 0.9% 100 ML IVPB SCH ×3 (03:00→14:17)
[2018-09-23] MEDS: Vancomycin HCl 1.5 GM in Sodium Chloride 0.9% 250 ML 300 ML IVPB SCH ×2 (04:00→15:42)
[2018-09-23] MEDS: Levothyroxine 150 MCG TAB PO SCH (06:17)
[2018-09-23] MEDS ORDERED: Furosemide 20 MG/2 ML VIAL SLOW IVP SCH (08:45)
[2018-09-23] MEDS: metFORMIN 500 MG TAB PO SCH ×2 (08:57→17:11)
[2018-09-23] MEDS: Enoxaparin Sodium 40 MG/0.4 ML SYRINGE SC SCH (08:57)
[2018-09-23] MEDS: Digoxin 0.25 MG TAB PO SCH (08:58)
[2018-09-23] MEDS: FLUoxetine HCl 10 MG CAP PO SCH (08:58)
[2018-09-23] MEDS: Famotidine 20 MG TAB PO SCH ×2 (08:58→21:02)
[2018-09-23] MEDS: guaiFENesin ER 600 MG TAB PO SCH ×2 (08:58→21:02)
[2018-09-23] MEDS: Azithromycin 250 MG TAB PO SCH (08:58)
[2018-09-23] MEDS: Latanoprost 0.005% Ophth Soln 2.5 ml Bottle EA EYE SCH (08:59)
[2018-09-23] MEDS: EDOXABAN TOSYLATE 60 MG PO SCH (09:11)
--- NOTE | 2018-09-23 13:55 | PDOC.PN ---
- Subjective Encounter Start Date: 09/23/18 Encounter Start Time: 09:15 Subjective: pt up in bed no complains - Objective Resuscitation Status - Order Detail: 09/20/18 00:55 Resuscitation Status Routine Resuscitation Status: FULL: Full Resuscitation Vital Signs & Weight: Vital Signs (12 hours) Temp Pulse Pulse Pulse Resp BP BP 09/23/18 11:54 98 F 81 20 09/23/18 10:29 76 16 09/23/18 10:07 93 81 133/72 147/97 H 09/23/18 08:58 88 09/23/18 07:51 97.9 F 87 20 09/23/18 07:07 74 16 09/23/18 04:31 78 20 09/23/18 04:09 98.1 F 80 15 09/23/18 03:40 BP BP Pulse Ox Pulse Ox Pulse Ox 09/23/18 11:54 138/72 94 L 09/23/18 10:29 09/23/18 10:07 97 99 09/23/18 08:58 09/23/18 07:51 177/97 H 99 09/23/18 07:07 09/23/18 04:31 146/87 H 95 09/23/18 04:09 178/86 H 100 09/23/18 03:40 95 Weight Weight 288 lb 11.2 oz Most Recent Monitor Data Heart Rate from ECG 88 NIBP 145/77 NIBP BP-Mean 99 Respiration from ECG 16 SpO2 93 I&O: 09/22/18 09/23/18 09/24/18 06:59 06:59 06:59 Intake Total 3670 2334 Output Total 2040 4225 Balance 1630 -1891 Result Diagrams: 09/21/18 04:15 09/21/18 04:15 Additional Labs: Accuchecks 09/22/18 17:41 POC Glucose 108 Phys Exam - Physical Examination Neck: no nodes, no JVD, supple, full ROM rhonchi all over and crackles to lower bases Cardiovascular: RRR, no significant murmur, no rub, gallop, irregular Gastrointestinal: soft, non-tender, no distention, positive bowel sounds Musculoskeletal: edema present Dx/Plan (1) Sepsis Code(s): A41.9 - SEPSIS, UNSPECIFIED ORGANISM Status: Acute (2) Pneumonia Code(s): J18.9 - PNEUMONIA, UNSPECIFIED ORGANISM Status: Acute (3) Hypotension Status: Acute - Plan pt was very drowsy last night was put on cpap -: given iv lasix with good improvmenet in his oxygen sat. -: will continue broad spectrum abx for now. -: PT/OT for snf vs rehab * . Review of Systems - Review of Systems Respiratory: negative: Cough, Dry, Shortness of Breath, Hemoptysis, SOB with Excertion, Pleuritic Pain, Sputum, Wheezing Cardiovascular: negative: chest pain, palpitations, orthopnea, paroxysmal nocturnal dyspnea, edema, light headedness, other Gastrointestinal: negative: Nausea, Vomiting, Abdominal Pain, Diarrhea, Constipation, Melena, Hematochezia, Other Genitourinary: negative: Dysuria, Frequency, Incontinence, Hematuria, Retention , Other - Medications/Allergies Allergies/Adverse Reactions: Allergies Allergy/AdvReac Type Severity Reaction Status Date / Time No Known Allergies Allergy Unverified 09/20/18 03:34 Medications: Current Medications Acetaminophen (Tylenol) 650 mg PO Q4H PRN PRN Reason: Headache/Fever/Mild Pain (1-3) Last Admin: 09/22/18 09:02 Dose: 650 mg Albuterol/Ipratropium (Duoneb) 3 ml NEB N2IE-AJ [facility] Last Admin: 09/23/18 10:29 Dose: 3 ml Atorvastatin Calcium (Lipitor) 10 mg PO HS [facility] Last Admin: 09/22/18 20:30 Dose: 10 mg Azithromycin (Zithromax) 250 mg PO DAILY [facility] Stop: 09/24/18 09:01 Last Admin: 09/23/18 08:58 Dose: 250 mg Bisacodyl (Dulcolax) 10 mg PO DAILYPRN PRN PRN Reason: Constipation Dextrose/Water (Dextrose 50%) 25 gm SLOW IVP PRN PRN PRN Reason: Hypoglycemia Digoxin (Lanoxin) 0.25 mg PO DAILY [facility] Last Admin: 09/23/18 08:58 Dose: 0.25 mg Enoxaparin Sodium (Lovenox) 40 mg SC 0900 [facility] Last Admin: 09/23/18 08:57 Dose: 40 mg Famotidine (Pepcid) 20 mg PO BID [facility] Last Admin: 09/23/18 08:58 Dose: 20 mg Fluoxetine HCl (Prozac) 10 mg PO DAILY [facility] Last Admin: 09/23/18 08:58 Dose: 10 mg Glucagon (Glucagon) 1 mg IM PRN PRN PRN Reason: Hypoglycemia Guaifenesin (Mucinex) 600 mg PO Q12HR [facility] Last Admin: 09/23/18 08:58 Dose: 600 mg Guaifenesin/Dextromethorphan (Robitussin Dm) 15 ml PO Q4H PRN PRN Reason: Cough Last Admin: 09/22/18 14:05 Dose: 15 ml Piperacillin Sod/Tazobactam (Sod 3.375 gm/ Sodium Chloride) 100 mls @ 200 mls/ hr IVPB 0200,0800,1400,2000 [facility] Last Admin: 09/23/18 08:57 Dose: 100 mls Dextrose/Water (D5w) 1,000 mls @ 0 mls/hr IV .Q0M PRN PRN Reason: Hypoglycemia Vancomycin HCl 1.5 gm/ Sodium (Chloride) 300 mls @ 200 mls/hr IVPB 0300,1500 [facility] Last Admin: 09/23/18 04:00 Dose: 300 mls Insulin Human Lispro (Humalog) 0 units SC .MODERATE SLIDING SC PRN PRN Reason: Moderate Correctional Scale Last Admin: 09/21/18 22:28 Dose: 10 unit Insulin Human Lispro (Humalog) 0 units SC .BEDTIME SLIDING SC PRN; Protocol PRN Reason: BEDTIME SLIDING SCALE Latanoprost (Xalatan 0.005% Oph Soln) 1 drop EA EYE QAM [facility] Last Admin: 09/23/18 08:59 Dose: 1 drp Levothyroxine Sodium (Synthroid) 150 mcg PO 0600 [facility] Last Admin: 09/23/18 06:17 Dose: 150 mcg Metformin HCl (Glucophage) 1,000 mg PO BID-[facility] Last Admin: 09/23/18 08:57 Dose: 1,000 mg Miscellaneous Medication (Pharmacy To Dose) 0 each IVPB PRN PRN PRN Reason: VANC/ZOSYN Pharmacy to Dose Ccu Electrolyte (Replacement Protocol) 0 each FS PRN PRN PRN Reason: FOR ELECTROLYTE REPLACEMENT Ondansetron HCl (Zofran Odt) 4 mg PO Q6H PRN PRN Reason: Nausea/Vomiting Ondansetron HCl (Zofran) 4 mg IVP Q6H PRN PRN Reason: Nausea/Vomiting (Edoxaban Tosylate [ Savaysa] 60 Mg) Hm Med 0 each PO DAILY [facility] Last Admin: 09/23/18 09:11 Dose: 1 each Senna/Docusate Sodium (Senokot S) 2 tab PO BIDPRN PRN PRN Reason: Constipation Zolpidem Tartrate (Ambien) 5 mg PO HSPRN PRN PRN Reason: Insomnia
--- NOTE | 2018-09-23 17:21 | PRG ---
DATE OF SERVICE: 09/23/2018 SUBJECTIVE: Chad Sorenson had no complaints. He is siting in the bedside chair. His Vazquez was still in. He wants it out. OBJECTIVE: VITAL SIGNS: He is afebrile. Heart rate 71, respiratory rate is 20 , oximetry is 96% on 2 L, blood pressure 159/76. LUNGS: Clear. HEART: Regular rhythm. S1 and S2 are normal. ABDOMEN: Soft and nontender. EXTREMITIES: With only trace edema. IMPRESSION: 1. Pneumonia. 2. Diabetes. 3. Atrial fibrillation. Cultures have been reviewed. He had one blood culture, which I suspect was a contaminant. His IV antibiotic should be discontinued and we should continue with p.o. antimicrobial therapy. His Vazquez can be discontinued. He is not stable on his feet, but he says he can use the bedside urinal. Job ID: [id number] MTDD
[2018-09-23] MEDS: Atorvastatin Calcium 10 MG TAB PO SCH (21:03)
[2018-09-23] MEDS: Amoxicillin/Potassium Clav 875 MG TAB PO SCH (21:03)
[2018-09-24] MEDS: hydrALAZINE 20 MG/ML VIAL SLOW IVP PRN ×2 (01:00→12:03)
[2018-09-24] MEDS: Levothyroxine 150 MCG TAB PO SCH (05:57)
[2018-09-24] MEDS: Enoxaparin Sodium 40 MG/0.4 ML SYRINGE SC SCH (09:21)
[2018-09-24] MEDS: Digoxin 0.25 MG TAB PO SCH (09:21)
[2018-09-24] MEDS: Latanoprost 0.005% Ophth Soln 2.5 ml Bottle EA EYE SCH (09:22)
[2018-09-24] MEDS: EDOXABAN TOSYLATE 60 MG PO SCH (09:22)
[2018-09-24] MEDS: Famotidine 20 MG TAB PO SCH ×2 (09:22→21:19)
[2018-09-24] MEDS: metFORMIN 500 MG TAB PO SCH ×2 (09:22→16:55)
[2018-09-24] MEDS: FLUoxetine HCl 10 MG CAP PO SCH (09:22)
[2018-09-24] MEDS: guaiFENesin ER 600 MG TAB PO SCH ×2 (09:22→21:19)
[2018-09-24] MEDS: Amoxicillin/Potassium Clav 875 MG TAB PO SCH ×2 (09:22→21:19)
[2018-09-24] MEDS: Azithromycin 250 MG TAB PO SCH (09:22)
[2018-09-24] MEDS: Losartan 25 MG TAB PO SCH (09:23)
--- NOTE | 2018-09-24 13:00 | PDOC.PN ---
- Subjective Encounter Start Date: 09/24/18 Encounter Start Time: 12:58 Subjective: Doing OK, no complains - Objective Resuscitation Status - Order Detail: 09/20/18 00:55 Resuscitation Status Routine Resuscitation Status: FULL: Full Resuscitation MAR Reviewed: Yes Vital Signs & Weight: Vital Signs (12 hours) Temp Pulse Resp BP Pulse Ox 09/24/18 11:58 97.9 F 88 20 183/95 H 94 L 09/24/18 10:37 80 14 09/24/18 09:21 84 09/24/18 08:04 97.6 F 87 20 179/99 H 95 09/24/18 06:39 90 14 09/24/18 03:22 97.4 F L 90 20 180/95 H 93 L 09/24/18 02:25 98 09/24/18 01:00 83 Weight Weight 285 lb 5 oz Most Recent Monitor Data Heart Rate from ECG 88 NIBP 145/77 NIBP BP-Mean 99 Respiration from ECG 16 SpO2 93 I&O: 09/23/18 09/24/18 09/25/18 06:59 06:59 06:59 Intake Total 2334 1973 Output Total 4225 2600 Balance -7235 -690 Result Diagrams: 09/21/18 04:15 09/21/18 04:15 Additional Labs: Accuchecks 09/24/18 09/24/18 09/23/18 11:29 05:46 20:48 POC Glucose 109 116 H 134 H 09/23/18 09/23/18 09/23/18 16:58 11:20 05:43 POC Glucose 115 H 139 H 111 H 09/22/18 09/22/18 09/21/18 20:20 05:45 20:42 POC Glucose 113 H 295 H 370 H Phys Exam - Physical Examination Constitutional: NAD HEENT: PERRLA, moist MMs, sclera anicteric, TM's clear, oral pharynx no lesions , 2+ tonsils Neck: no nodes, no JVD, supple, full ROM +coarse breath sounds Cardiovascular: no significant murmur, no rub, irregular Gastrointestinal: soft, non-tender, no distention, positive bowel sounds Musculoskeletal: no edema, pulses present Neurological: non-focal, normal sensation, moves all 4 limbs Psychiatric: normal affect, A&O x 3 Dx/Plan (1) Sepsis Code(s): A41.9 - SEPSIS, UNSPECIFIED ORGANISM Status: Acute Comment: Vanc and Zosyn discontinued, continue Augmentin and Azithromycin and nebs. (2) Hypotension Status: Acute Comment: treate sepsis, IV hydration, BP better now (3) Pneumonia Code(s): J18.9 - PNEUMONIA, UNSPECIFIED ORGANISM Status: Acute Comment: as above - Plan cont current plan of care, plan discussed w/ family, respiratory therapy, DVT proph w/lovenox, DVT proph w/SCDs * .
--- NOTE | 2018-09-24 14:49 | PRG ---
DATE OF SERVICE: 09/24/2018 SUBJECTIVE: Mr. Sorenson apparently had a restless night. He would not wear CPAP, would not wear his oxygen. He was confused. He is still intermittently confused according to family. OBJECTIVE: VITAL SIGNS: He is afebrile. Heart rate is 88, respiratory is 20, oximetry is 94% on 2 L, blood pressure is 183/95. He told his medicines will be adjusted for his blood pressure. LUNGS: Clear. HEART: Regular rhythm. S1 and S2 are normal. A grade 2/6 systolic murmur. ABDOMEN: Soft and nontender. EXTREMITIES: Without edema. LABORATORY DATA: No recent lab other than glucoses. His says he has posttraumatic stress disorder. She has two daughters, neither can sit with him. The nephew came and sat with him yesterday, so she can get some rest. I have asked the nurses to find a sitter. IMPRESSION: 1. Pneumonia. 2. Chronic atrial fibrillation. 3. Posttraumatic stress disorder per the , with encephalopathy last night. I have added Seroquel to his medical regimen and see if this helps. From pulmonary standpoint, he appears to be stable with the confusion is a big issue. Hopefully, we can get a sitter for him, so his can get some rest. Job ID: [id number]
[2018-09-24] MEDS: Atorvastatin Calcium 10 MG TAB PO SCH (21:19)
[2018-09-25] MEDS: Levothyroxine 150 MCG TAB PO SCH (05:35)
[2018-09-25] MEDS: Enoxaparin Sodium 40 MG/0.4 ML SYRINGE SC SCH (09:02)
[2018-09-25] MEDS: Digoxin 0.25 MG TAB PO SCH (09:03)
[2018-09-25] MEDS: Latanoprost 0.005% Ophth Soln 2.5 ml Bottle EA EYE SCH (09:03)
[2018-09-25] MEDS: Amoxicillin/Potassium Clav 875 MG TAB PO SCH ×2 (09:03→20:18)
[2018-09-25] MEDS: metFORMIN 500 MG TAB PO SCH ×2 (09:03→16:34)
[2018-09-25] MEDS: FLUoxetine HCl 10 MG CAP PO SCH (09:04)
[2018-09-25] MEDS: guaiFENesin ER 600 MG TAB PO SCH ×2 (09:04→20:18)
[2018-09-25] MEDS: EDOXABAN TOSYLATE 60 MG PO SCH (09:04)
[2018-09-25] MEDS: Losartan 25 MG TAB PO SCH (09:04)
[2018-09-25] MEDS: Famotidine 20 MG TAB PO SCH ×2 (09:04→20:17)
--- NOTE | 2018-09-25 09:47 | PRG ---
DATE OF SERVICE: 09/25/2018 SUBJECTIVE: He is doing reasonably well. He had no complaints for me today. OBJECTIVE: VITAL SIGNS: Temperature 97.8, pulse 83, respirations 21, O2 saturation 93% on 2 L, and blood pressure 135/67. HEENT: Unremarkable. CHEST: Few crackles at left base. CARDIAC: S1 and S2. Regular. ABDOMEN: Soft. EXTREMITIES: No edema. ASSESSMENT: 1. Left lower lobe pneumonia. 2. Status post acute respiratory failure. PLAN: The patient is probably ready to go to rehab, that is really the only thing left to do. I spoke with the patient's . Job ID: [id number]
--- NOTE | 2018-09-25 15:04 | PDOC.PN ---
- Subjective Encounter Start Date: 09/25/18 Encounter Start Time: 15:02 Subjective: Patient doing really well, walked a few steps with PT and walker - Objective Resuscitation Status - Order Detail: 09/20/18 00:55 Resuscitation Status Routine Resuscitation Status: FULL: Full Resuscitation MAR Reviewed: Yes Vital Signs & Weight: Vital Signs (12 hours) Temp Pulse Pulse Pulse Resp BP BP 09/25/18 14:10 76 20 09/25/18 11:54 98.5 F 82 19 09/25/18 10:43 86 20 09/25/18 10:14 93 84 103/57 L 132/70 09/25/18 09:03 83 09/25/18 07:40 97.8 F 83 21 H 09/25/18 06:46 09/25/18 06:43 92 22 H 09/25/18 03:25 98.6 F 90 21 H BP BP Pulse Ox Pulse Ox Pulse Ox 09/25/18 14:10 09/25/18 11:54 139/74 94 L 09/25/18 10:43 92 L 09/25/18 10:14 93 L 91 L 09/25/18 09:03 09/25/18 07:40 135/67 93 L 09/25/18 06:46 90 L 09/25/18 06:43 90 L 09/25/18 03:25 125/67 92 L Weight Weight 276 lb 4 oz Most Recent Monitor Data Heart Rate from ECG 88 NIBP 145/77 NIBP BP-Mean 99 Respiration from ECG 16 SpO2 93 I&O: 09/24/18 09/25/18 09/26/18 06:59 06:59 06:59 Intake Total 1973 1370 Output Total 2600 200 Balance -627 1170 Result Diagrams: 09/21/18 04:15 09/21/18 04:15 Additional Labs: Accuchecks 09/25/18 09/25/18 09/24/18 11:17 05:15 20:18 POC Glucose 105 102 107 09/24/18 17:34 POC Glucose 106 Phys Exam - Physical Examination HEENT: PERRLA, moist MMs, sclera anicteric, TM's clear, oral pharynx no lesions , 2+ tonsils Neck: no nodes, no JVD, supple, full ROM Respiratory: no wheezing, no rales Cardiovascular: RRR, no significant murmur, no rub Gastrointestinal: soft, non-tender, no distention, positive bowel sounds Musculoskeletal: edema present Neurological: non-focal, normal sensation, moves all 4 limbs Psychiatric: normal affect, A&O x 3 Dx/Plan (1) Sepsis Code(s): A41.9 - SEPSIS, UNSPECIFIED ORGANISM Status: Acute Comment: Vanc and Zosyn discontinued, continue Augmentin and Azithromycin and nebs. (2) Hypotension Status: Acute Comment: treate sepsis, IV hydration, BP better now (3) Pneumonia Code(s): J18.9 - PNEUMONIA, UNSPECIFIED ORGANISM Status: Acute Comment: as above - Plan cont current plan of care, plan discussed w/ family, continue antibiotics, PT/OT , respiratory therapy, DVT proph w/lovenox DC to SNF when available * .
[2018-09-25] MEDS: Atorvastatin Calcium 10 MG TAB PO SCH (20:18)
[2018-09-26] MEDS: Levothyroxine 150 MCG TAB PO SCH (06:27)
[2018-09-26] MEDS: metFORMIN 500 MG TAB PO SCH ×2 (08:15→16:12)
[2018-09-26] MEDS: Losartan 25 MG TAB PO SCH (08:16)
[2018-09-26] MEDS: Amoxicillin/Potassium Clav 875 MG TAB PO SCH (08:16)
[2018-09-26] MEDS: Digoxin 0.25 MG TAB PO SCH (08:16)
[2018-09-26] MEDS: FLUoxetine HCl 10 MG CAP PO SCH (08:17)
[2018-09-26] MEDS: Latanoprost 0.005% Ophth Soln 2.5 ml Bottle EA EYE SCH (08:17)
[2018-09-26] MEDS: Famotidine 20 MG TAB PO SCH (08:17)
[2018-09-26] MEDS: guaiFENesin ER 600 MG TAB PO SCH (08:17)
[2018-09-26] MEDS: Enoxaparin Sodium 40 MG/0.4 ML SYRINGE SC SCH (08:17)
[2018-09-26] MEDS: EDOXABAN TOSYLATE 60 MG PO SCH (08:18)
--- NOTE | 2018-09-26 09:31 | PRG ---
DATE OF SERVICE: 09/26/2018 SUBJECTIVE: Mr. Sorenson is doing well. He is up in a chair. He got up and walked yesterday. OBJECTIVE: VITAL SIGNS: Temperature 97.6, pulse 77, respirations 14, O2 saturation 93% on 2 L, and blood pressure 139/90. HEENT: Unremarkable. NECK: No JVD. LUNGS: Fairly clear. CARDIAC: S1 and S2. Regular. ABDOMEN: Soft. EXTREMITIES: No edema. ASSESSMENT: 1. Left lower lobe pneumonia, which is improving. 2. Status post respiratory failure. 3. Deconditioning. PLAN: The patient is stable for a move over to rehab. He needs to finish out a total of 10 to 14 days of antibiotics. Pulmonary has no further recommendations. We will sign off. Please recall further assistance if needed. Job ID: [id number]
--- NOTE | 2018-09-26 11:47 | PRG ---
DATE OF SERVICE: 09/26/2018 SUBJECTIVE: The patient is seen and examined at the bedside. He is doing quite well. His appetite is fair. He had bowel movement this morning. He is sitting in the chair. His shortness of breath improved. OBJECTIVE: VITAL SIGNS: Blood pressure is 139/90, pulse is 77, temperature is 97.8, respiratory rate is 14, O2 saturation is 92% on 2 L by nasal cannula. HEENT: Head is atraumatic and normocephalic. Eyes are PERRLA. Sclerae are nonicteric. Oral mucosa is moist. NECK: Supple. No lymphadenopathy. LUNGS: Breath sounds diminished at both bases with bilateral crackles. No wheezing. HEART: S1, S2 distant. No S3, no S4. ABDOMEN: Obese, soft, nontender, nondistended. EXTREMITIES: No clubbing, cyanosis. There is 1 to 2+ peripheral edema, especially in the left lower extremity. NEUROLOGIC: He is alert and oriented x4. There is no any sensory or motor deficits present. Cranial nerves are intact. LABORATORY DATA: Showed glycemia ranging from 85 to 122. IMPRESSION: 1. Left lower lobe pneumonia, improving. The patient is supposed to finish up his course of antibiotics. He was switched to Augmentin. He will continue on Augmentin for additional 6 days. 2. Status post respiratory failure. 3. Deconditioning. 4. Sepsis. DISCUSSION: The patient is stable to be transferred to the rehab. We are waiting for [place] to approve rehab treatment. For now, we will continue his oral antibiotic and DVT prophylaxis with Lovenox and SCDs, PT and OT, respiratory therapy. Job ID: [id number]
[2018-09-26 16:11] VITALS: TEMP 97.9
[2018-09-26 16:17] VITALS: BP 137/58
--- NOTE | 2018-09-27 03:47 | DIS ---
DATE OF ADMISSION: 09/20/2018 DATE OF DISCHARGE: 09/26/2018 FINAL DIAGNOSES: 1. Sepsis. 2. Left lower lobe pneumonia. 3. Status post respiratory failure. 4. Deconditioning. CONSULTANTS: Pulmonary/Critical Care, Dr. Nakul Marrufo and Dr. Jim Adamson. HOSPITAL COURSE: The patient was a 73-year-old male, [facility], who has a history of hypertension, diabetes mellitus type 2, atrial fibrillation, hypothyroidism, tremors, sleep apnea, who presented to the emergency room with productive cough for 3 days. He felt congested and had several nasal decongestants, which has not been helping. In the emergency room, he was evaluated. He was started on sepsis protocol. We also placed a central line. He was hypotensive. He was started on IV fluids and vasopressors. He got admitted to the intensive care unit. At the time of emergency room evaluation, his blood pressure was 97/54, pulse was 68, respiratory rate was 28, and O2 saturation as 92 on 2 L by nasal cannula. His EKG showed atrial fibrillation with rate of 129 beats per minute. The chest x-ray showed bilateral vascular congestion with left pleural effusions. White count was elevated at 16.3, hemoglobin 14.0, hematocrit 43.5, and platelet count was 224,000. PT 16.3, INR 1.3, PTT 31.4. ABGs showed pH of 7.37, pCO2 of 43, pO2 of 70. Sodium was 141, potassium 3.7, chloride 103, BUN 16, creatinine 1.36. Lactic acid 2.9, glucose 187. Troponin 0.214. Urinalysis was negative. The patient was placed on vancomycin and Zosyn. Central line was placed. Pulmonary/senior product analyst was consulted. He was placed on vasopressors. He was in atrial fibrillation with rapid ventricular response, but later the rate was controlled. He was seen by Dr. Nakul Marrufo from Pulmonary/Critical Care consultation. He recommended continuation of the patient's vasopressors and IV fluids. He gradually improved. His vasopressors were stopped. One out of two cultures came back positive for coagulase negative Staphylococcus, which was probably a contamination. His influenza type A and B came back negative and the respiratory panel came back negative. The patient was finally switched to oral Augmentin. He had 1 spell of some encephalopathy, but this quickly improved, and he is doing quite well at this time. His blood pressure is 139/90, pulse is 77, temperature is 97.8, and respiratory rate is 14, O2 saturation 92% on 2 L by nasal cannula. He got approved by the [place] for rehabilitation and he is discharged to the rehab center today with recommendation to do PT and OT. His medications at the time of discharge; 1. Savaysa 60 mg once a day. 2. Augmentin 875 mg twice a day for additional 6 days. 3. Atorvastatin 10 mg at bedtime. 4. Digoxin 0.25 mg daily. 5. Fluoxetine 10 mg daily. 6. Guaifenesin 600 mg q.12 hours orally. 7. Levothyroxine 150 mcg every morning. 8. Losartan 50 mg once a day. 9. Metformin 1000 mg twice a day. Seen and examined before he is discharged to rehab. He will stay on 2000 calories ADA diet and activities as tolerated per rehab unit. TIME SPENT: Time spent on discharge more than 30 minutes. Job ID: [id number]
== END 2018-09-26 20:35 | DRG 871 ==
LOC: ERS 21:19 → CCU 09-20 00:30 → 2NO 09-21 17:39
PROVIDERS: ADMIT Internal Medicine; ATTEND Internal Medicine
PROC: 3E063XZ Introduction of Vasopressor into Central Artery, Percutaneous Approach (ICD-10-PCS; principal; 2018-09-20)
DX: A41.9 Sepsis, unspecified organism (principal); J18.9 Pneumonia, unspecified organism; R65.21 Severe sepsis with septic shock; J96.01 Acute respiratory failure with hypoxia; J18.8 Other pneumonia, unspecified organism; N17.9 Acute kidney failure, unspecified; G93.49 Other encephalopathy; E11.9 Type 2 diabetes mellitus without complications; E03.9 Hypothyroidism, unspecified; I48.2 Chronic atrial fibrillation; Z79.01 Long term (current) use of anticoagulants; Z79.84 Long term (current) use of oral hypoglycemic drugs; Z79.890 Hormone replacement therapy; Z79.899 Other long term (current) drug therapy; Z79.1 Long term (current) use of non-steroidal anti-inflammatories (NSAID); E78.5 Hyperlipidemia, unspecified; I12.9 Hypertensive chronic kidney disease with stage 1 through stage 4 chronic kidney disease, or unspecified chronic kidney disease; E11.22 Type 2 diabetes mellitus with diabetic chronic kidney disease; N18.9 Chronic kidney disease, unspecified; F32.9 Major depressive disorder, single episode, unspecified; F43.10 Post-traumatic stress disorder, unspecified; Z91.19 Patient's noncompliance with other medical treatment and regimen
CPT/HCPCS: 36415; 36416; 36556; 51702; 71045; 80048; 80053; 80069; 80202; 81003; 81015; 82550; 82553; 82805; 83605; 83880; 84484; 85025; 85610; 85730; 87040; 87149; 87633; 87798; 87804; 93005; 94640; 96361; 96365; 96366; G8978-GP-CL; G8979-GP-CI; G8987-GO-CK; G8988-GO-CI; J0360; J1650; J1940; J2543; J3370; J7050; J7620

== ENCOUNTER 2018-10-13 09:00 | Outpatient (CLI) | payer OTHER | END 2018-10-13 09:01 | disposition home or self-care (01) | LOC: EKG 09:00 | PROVIDERS: ATTEND Orthopaedic Surgery | DX: I25.10 Atherosclerotic heart disease of native coronary artery without angina pectoris (principal) | CPT/HCPCS: 93005; 93010 ==

== ENCOUNTER 2018-12-04 13:53 | Outpatient (CLI) | payer MEDICARE, BC ==
--- NOTE | 2018-12-04 17:17 | MRI ---
NONCONTRAST MRI CERVICAL SPINE: Date: 12-04-18 History: Cervical spondolytic myelopathy, radiculopathy. Patient complains of neck pain and low back pain. Comparison: None available. FINDINGS: There is mild volume loss involving the visualized cerebellar hemisphere at the base of the brain. Ce rvicomedullary junction has a normal appearance. Normal signal intensity is demonstrated in the bone marrow. C2-3: There is mild disc osteophyte complex which results in slight flattening of the ventral subarac hnoid space. Neural foramina are patent. C3-4: There is a mild disc osteophyte complex with central disc protrusion. Findings narrow the ventr al subarachnoid space and encroach on the anterior aspect of the spinal cord. There are facet degener ative changes present, primarily on the right. There is minimal left sided neural foraminal narrowing . The right neural foramen is patent. C4-5: There is a disc osteophyte complex with central disc protrusion. This narrows the ventral subar achnoid space with encroachment on the anterior aspect of the spinal cord. Facet hypertrophic changes are noted. There is mild to moderate bilateral neural foraminal narrowing. C5-6: There is loss of intervertebral disc height. There is a broad based disc osteophyte complex wit h broad based central and left paracentral disc protrusion. This results in narrowing of the central spinal canal with flattening of the anterior aspect of the spinal cord. There is moderate bilateral n eural foraminal narrowing, greater on the left. C6-7: There is a broad based disc osteophyte complex with central disc protrusion. This narrows the v entral subarachnoid space but does not contact the spinal cord. Neural foramina are patent. C7-T1: There is no significant disc bulge or disc herniation. Central spinal canal and neural foramin a are patent. IMPRESSION: 1. Disc degenerative changes seen throughout the cervical spine, greatest at the C4-5 and C5-6 levels as described above. POS: KEIRA
--- NOTE | 2018-12-04 17:18 | MRI ---
MRI LUMBAR SPINE WITHOUT CONTRAST: INDICATIONS: Lumbar myelopathy and radiculopathy. TECHNIQUE: Multiplanar, multisequence MR images were obtained of the lumbar spine without contrast. No radiogra phic or MR comparisons are available. FINDINGS: Bone marrow signal intensity appears within normal limits. The retroperitoneum and paravertebral sof t tissues appear within normal limits. At L5-S1, there is a broad-based disk bulge and facet osteoarthrosis, in addition to loss of disk spa ce height, inducing mild to moderate left neural foraminal narrowing. At L4-L5, there is a broad-based bulge with facet hypertrophy and ligamentum flavum hypertrophy, dayanna cing moderate left and mild to moderate right neural foraminal narrowing. At L3-L4, there is a broad-based bulge and mild facet joint degenerative change, inducing mild bilate ral neural foraminal narrowing. At L2-L3, there is a broad-based bulge with facet hypertrophy, inducing mild bilateral neural foramin al narrowing. At L1-L2, there is a broad-based bulge without appreciable central canal or neural foraminal narrowin g. At T12-L1, there is no appreciable central canal or neural foraminal narrowing. At T11-T12, there is no appreciable central canal or neural foraminal narrowing. IMPRESSION: Mild to moderate spondylosis of the lumbar spine, most pronounced at L2-L3 through L5-S1. POS: KEIRA
== END 2018-12-04 13:54 | disposition home or self-care (01) ==
LOC: SCSMRI 13:53
PROVIDERS: ATTEND Psychiatry & Neurology Neurology
DX: M47.22 Other spondylosis with radiculopathy, cervical region (principal); M47.12 Other spondylosis with myelopathy, cervical region; M50.021 Cervical disc disorder at C4-C5 level with myelopathy; M50.121 Cervical disc disorder at C4-C5 level with radiculopathy; M47.26 Other spondylosis with radiculopathy, lumbar region; M47.16 Other spondylosis with myelopathy, lumbar region; M47.27 Other spondylosis with radiculopathy, lumbosacral region
CPT/HCPCS: 72141; 72148